=== PATIENT | female | born 1965 | race Caucasian/White ===

== ENCOUNTER 2017-03-27 15:03 | Outpatient (CLI) | payer MEDICAID | END 2017-03-27 15:04 | disposition critical access hospital (66) | LOC: EMS 15:03 | PROVIDERS: ATTEND Surgery | DX: R11.2 Nausea with vomiting, unspecified (principal); M54.5 Low back pain | CPT/HCPCS: A0425; A0427 ==

== ENCOUNTER 2017-03-27 15:36 | Emergency (ER) | payer MEDICAID ==
[2017-03-27] MEDS ORDERED: SODIUM CHLORIDE 0.9% 1,000 ML IV ONE (15:57)
[2017-03-27] MEDS ORDERED: ONDANSETRON 4 MG/2 ML VIAL IVP STA (15:57)
[2017-03-27] MEDS ORDERED: KETOROLAC 60 MG/2 ML VIAL IVP STA (15:57)
--- NOTE | 2017-03-27 16:00 | ED Physician Documentation ---
PD HPI ABD PAIN - Stated complaint Stated Complaint: N/V - Chief complaint Chief Complaint: Abd Pain - History obtained from History obtained from: Patient, EMS - History of Present Illness Timing - onset: Today Timing - duration: Hours Timing - details: Abrupt onset, Still present Quality: Sharp, Pain Location: RUQ Radiation: Right flank Improved by: Other (nothing) Worsened by: Other (nothing) Associated symptoms: Nausea, Vomiting, Dizzy Similar symptoms before: Has not had sx before Recently seen: Not recently seen - Additional information Additional information: 51-year-old female with a prior history of sciatica has sudden onset of severe right back pain radiating to her right flank. She does not have other modifying factors. She does have some nausea associated with this and has vomited. She states the pain is severe it was abrupt in onset and different from what she has had before with sciatica.She has had a flu shot recently. Review of Systems Constitutional: denies: Fever Eyes: denies: Decreased vision Ears: denies: Ear pain Nose: denies: Congestion Throat: denies: Sore throat Cardiac: denies: Chest pain / pressure, Palpitations Respiratory: denies: Dyspnea, Cough GI: reports: Abdominal Pain, Nausea, Vomiting. denies: Constipation, Diarrhea : denies: Dysuria, Frequency Skin: denies: Rash Musculoskeletal: reports: Back pain. denies: Neck pain, Extremity pain Neurologic: denies: Generalized weakness, Focal weakness, Numbness PD PAST MEDICAL HISTORY - Past Medical History Past Medical History: No - Past Surgical History Past Surgical History: No - Present Medications Home Medications: Ambulatory Orders Medication Instructions Recorded Confirmed HYDROcod/ACETAM 5/325 [[place] 5/325] 1 - 2 ea PO Q6H PRN #15 tablet 03/27/17 Tamsulosin [Flomax] 0.4 mg PO DAILY #7 capsule 03/27/17 - Allergies Allergies/Adverse Reactions: Allergies Allergy/AdvReac Type Severity Reaction Status Date / Time No Known Drug Allergies Allergy Verified 03/27/17 15:47 - Social History Does the pt smoke?: No Smoking Status: Never smoker Does the pt drink ETOH?: Yes Does the pt have substance abuse?: Yes Substance Use and Type: Marijuana - Immunizations Immunizations are current?: Yes - POLST Patient has POLST: No PD ED PE NORMAL - Vitals Vital signs reviewed: Yes (Hypertensive) - General General: Well developed/nourished, Other (The patient appears to be in pain and is grunting and moving about on the gurney.) - HEENT HEENT: Atraumatic, PERRL - Neck Neck: Supple, no meningeal sign - Cardiac Cardiac: RRR, No murmur - Respiratory Respiratory: No respiratory distress, Clear bilaterally - Abdomen Abdomen: Soft, Non tender - Back Back: No CVA TTP, No spinal TTP - Derm Derm: Normal color, Warm and dry, No rash - Extremities Extremities: No deformity, No edema - Neuro Neuro: No motor deficit, No sensory deficit - Psych Psych: Normal mood, Normal affect Results - Vitals Vitals: Vital Signs - 24 hr 03/27/17 15:44 Temperature 36.1 C L Heart Rate 98 Respiratory 18 Rate Blood Pressure 152/99 H O2 Saturation 98 Oxygen O2 Source Room air - Labs Labs: Laboratory Tests 03/27/17 03/27/17 03/27/17 16:30 16:39 16:39 WBC 10.1 RBC 4.64 Hgb 13.9 Hct 40.7 MCV 87.7 MCH 29.9 MCHC 34.1 RDW 14.2 Plt Count 282 MPV 6.6 L Neut # 8.3 H Lymph # 1.3 L [place] # 0.3 Eos # 0.0 Baso # 0.1 Absolute Nucleated RBC 0.00 Nucleated RBC % 0.0 Sodium 136 Potassium 4.0 Chloride 100 L Carbon Dioxide 25 Anion Gap 11.0 BUN 14 Creatinine 0.8 Estimated GFR (MDRD) 75 L Glucose 118 H Calcium 9.3 Total Bilirubin 0.4 AST 21 ALT 13 Alkaline Phosphatase 82 Total Protein 7.9 Albumin 4.1 Globulin 3.8 Albumin/Globulin Ratio 1.1 Lipase 19 L Urine Color BROWN Urine Clarity CLOUDY Urine pH 6.5 Ur Specific [place] 1.025 Urine Protein 30 H Urine Glucose (UA) NEGATIVE Urine Ketones 15 H Urine Occult Blood LARGE H Urine Nitrite NEGATIVE Urine Bilirubin NEGATIVE Urine Urobilinogen 0.2 (NORMAL) Ur Leukocyte Esterase NEGATIVE Ur Microscopic Review INDICATED Urine Culture Comments Not Reportable - Rads (name of study) CT abdomen pelvis without Radiology: Prelim report reviewed (Impression: 1. 5 mm proximal right ureter stone with moderate hydronephrosis. 2. Otherwise unremarkable.), EMP read indepedently, See rad report Procedures - Bedside sono Bedside sono by EMP: With use of bedside ultrasound the right kidney is imaged and shows marked hydronephrosis and it is sonographically nontender. PD MEDICAL DECISION MAKING - ED course Complexity details: reviewed results, re-evaluated patient, considered differential, d/w patient ED course: 51-year-old female with no real medical history has acute onset of right flank pain she has hydronephrosis on bedside exam with the ultrasound and pain consistent with a kidney stone. She is administered intravenous Toradol Zofran and saline and a CT of the abdomen and pelvis is ordered without contrast. The patient has a remarkable improvement in her pain with the Toradol and there is a large stone in the proximal ureter with complete obstruction.I discussed with the patient the natural course of kidney stone and the fact the stone is large we should contact the urologist to be seen urgently as manipulation of stone may be required. I have also prescribed tamsulosin. Departure - Departure Disposition: 01 Home, Self Care Clinical Impression: Ureterolithiasis Condition: Stable Instructions: ED Stone Renal W Colic Follow-Up: [facility] [Provider Group] [facility] [Provider Group] Prescriptions: HYDROcod/ACETAM 5/325 [[place] 5/325] 1 - 2 ea PO Q6H PRN #15 tablet PRN Reason: Pain Tamsulosin [Flomax] 0.4 mg PO DAILY #7 capsule Comments: Today in the Emergency Department your blood pressure was elevated. This can happen from the stress of the visit itself, from a current illness or circumstance or from uncontrolled hypertension. If you take blood pressure medications take your usual mediations, have your blood pressure re-checked in an appropriate setting and follow up any elevation with your primary care doctor.
[2017-03-27] MEDS ORDERED: ONDANSETRON 4 MG/2 ML VIAL ONE (16:04)
[2017-03-27] MEDS ORDERED: KETOROLAC 30 MG/ML VIAL ONE (16:05)
[2017-03-27 16:45] LABS: BASOPHILS # (AUTO) 0.1 10^3/uL (0.0-0.1); EOSINOPHILS % (AUTO) 0.2 %; HCT - HEMATOCRIT 40.7 % (37.0-47.0); HGB - HEMOGLOBIN 13.9 g/dL (12.0-16.0); LYMPHOCYTES # (AUTO) 1.3 10^3/uL (1.5-3.5); MEAN CORPUSCULAR HEMOGLOBIN 29.9 pg (27.0-31.0); MEAN CORPUSCULAR HGB CONC 34.1 g/dL (32.0-36.0); MEAN CORPUSCULAR VOLUME 87.7 fL (81.0-99.0); MEAN PLATELET VOLUME 6.6 fL (7.9-10.8); MONOCYTES # (AUTO) 0.3 10^3/uL (0.0-1.0); MONOCYTES % (AUTO) 3.1 %; NEUTROPHILS # (AUTO) 8.3 10^3/uL (1.5-6.6); NEUTROPHILS % (AUTO) 82.7 %; RED BLOOD COUNT 4.64 10^6/uL (4.20-5.40); RED CELL DISTRIBUTION WIDTH 14.2 % (12.0-15.0); UNCORRECTED WHITE BLOOD COUNT 10.1 x10^3/uL; WHITE BLOOD COUNT 10.1 x10^3/uL (4.8-10.8)
--- NOTE | 2017-03-27 16:50 | CT Preliminary Report ---
Exam: CT Abdomen/Pelvis W/O IMPRESSION: 1. 5 mm proximal right ureter stone with moderate hydronephrosis. 2. Otherwise unremarkable. [facility] SITE ID: [id number]
--- NOTE | 2017-03-27 16:52 | CT Report ---
EXAM: CT ABDOMEN AND PELVIS (CT KUB) EXAM DATE: 03/27/2017 04:32 PM. CLINICAL HISTORY: Right flank pain, hydro on bedside. COMPARISONS: None. TECHNIQUE: Routine axial helical CT imaging was performed through the abdomen and pelvis without IV c ontrast. Reconstructions: Coronal and sagittal. In accordance with CT protocol optimization, one or more of the following dose reduction techniques w ere utilized for this exam: automated exposure control, adjustment of mA and/or KV based on patient s ize, or use of iterative reconstructive technique. FINDINGS: Lung Bases: Unremarkable. Right Kidney/Ureter: There is a proximal right ureter stone measuring 5 mm in diameter. There is mode rate pelvic caliectasis of the right kidney. There is mild right perinephric edema. Left Kidney/Ureter: No urolithiasis or hydronephrosis. Other Solid Organs: Noncontrast images of the solid organs are grossly unremarkable. Gallbladder/Bile Ducts: Unremarkable. Peritoneal Cavity: There are scattered colonic diverticula. No dilated bowel loops. No abnormal fluid or gas collection. Pelvic Organs: Urinary bladder appears unremarkable. Uterus is anteverted. Vasculature: Unremarkable. Other: No destructive bony abnormality. IMPRESSION: 1. 5 mm proximal right ureter stone with moderate hydronephrosis. 2. Otherwise unremarkable. [facility] Referring Provider Line: [phone] SITE ID: [id number]
[2017-03-27 16:59] LABS: ALBUMIN/GLOBULIN RATIO 1.1 (1.0-2.2); BILIRUBIN,TOTAL 0.4 mg/dL (0.2-1.0); CALCIUM 9.3 mg/dL (8.5-10.3); CREATININE 0.8 mg/dL (0.4-1.0); TOTAL PROTEIN 7.9 g/dL (6.7-8.2)
[2017-03-27 17:16] LABS: BILIRUBIN,URINE NEGATIVE (NEGATIVE); PH,URINE 6.5 PH (5.0-7.5)
[2017-03-27 17:18] LABS: UA w/ MICROSCOPIC CHARGE YES
[2017-03-27 17:22] LABS: UR CULTURE IF IND NOT INDICATED; WBC,URINE 0-3 /HPF (0-5)
[2017-03-27 17:35] VITALS: BP 108/62
== END 2017-03-27 17:38 | disposition home or self-care (01) ==
LOC: EDUNIT# → ED 15:36
DX: N13.2 Hydronephrosis with renal and ureteral calculous obstruction (principal); R03.0 Elevated blood-pressure reading, without diagnosis of hypertension
CPT/HCPCS: 36415; 74176; 80053; 81001; 81003; 83690; 85025; 87086; 96361; 96374; 96375; 99284

== ENCOUNTER 2018-03-01 10:19 | Outpatient (CLI) | payer OTHER | END 2018-03-01 10:20 | disposition short-term general hospital (02) | LOC: EMS 10:19 | PROVIDERS: ATTEND Surgery | DX: M54.5 Low back pain (principal) | CPT/HCPCS: A0425; A0427 ==

== ENCOUNTER 2018-04-17 18:12 | Outpatient (CLI) | payer OTHER | END 2018-04-17 18:13 | disposition critical access hospital (66) | LOC: EMS 18:12 | PROVIDERS: ATTEND Surgery | DX: R41.82 Altered mental status, unspecified (principal); R09.89 Other specified symptoms and signs involving the circulatory and respiratory systems | CPT/HCPCS: A0425; A0427 ==

== ENCOUNTER 2018-04-17 18:40 | Observation (INO) | payer OTHER ==
[2018-04-17] MEDS ORDERED: SODIUM CHLORIDE 0.9% 1,000 ML IV ONE (18:49)
--- NOTE | 2018-04-17 18:52 | ED Physician Documentation ---
History of Present Illness - Stated complaint Stated Complaint: LETHARGIC, END STAGE CA - History obtained from History obtained from: EMS - History of Present Illness Timing: Today (Brought in by ambulance from home. My understanding from the paramedics is that she has some sort of widely metastatic cancer and is not on hospice and she is more lethargic than normal today and was hypoxic on scene at 70%. The paramedics tell me that the family "wants everything done", but they are not here on arrival. The patient is unable to provide any history due to altered mental status.) Review of Systems Unable to obtain: AMS PD PAST MEDICAL HISTORY - Past Surgical History Past Surgical History: No - Present Medications Home Medications: Ambulatory Orders Medication Instructions Recorded Confirmed RX: HYDROcod/ACETAM 5/325 [[place] 1 - 2 ea PO Q6H PRN #15 tablet 03/27/17 5/325] RX: Tamsulosin [Flomax] 0.4 mg PO DAILY #7 capsule 03/27/17 - Allergies Allergies/Adverse Reactions: Allergies Allergy/AdvReac Type Severity Reaction Status Date / Time No Known Drug Allergies Allergy Verified 03/27/17 15:47 - Social History Does the pt smoke?: No Smoking Status: Never smoker Does the pt drink ETOH?: Yes Does the pt have substance abuse?: Yes - Immunizations Immunizations are current?: Yes - POLST Patient has POLST: No PD ED PE NORMAL - Vitals Vital signs reviewed: Yes - General General: Other (This is a very thin cachectic woman who is in some respiratory distress, she has her eyes closed and will answer to her name but provides no other verbal history) - HEENT HEENT: Other (Dry mucous membranes, slightly dilated pupils) - Neck Neck: Supple, no meningeal sign, No bony TTP - Cardiac Cardiac: RRR, No murmur - Respiratory Respiratory: Other (Neck with diminished breath sounds on the right) - Abdomen Abdomen: Other (Very tender diffusely) - Back Back: No CVA TTP, No spinal TTP - Derm Derm: Normal color, Warm and dry - Extremities Extremities: No edema, No calf tenderness / cord - Neuro Eye Opening: To Voice Motor: Localizes to Pain Verbal: Inappropriate GCS Score: 11 Results - Vitals Vitals: Vital Signs - 24 hr 04/17/18 04/17/18 18:52 19:30 Temperature 36.3 C L Heart Rate 104 H 113 H Respiratory 36 H Rate Blood Pressure 122/72 108/73 O2 Saturation 95 98 Oxygen O2 Source Non-rebreather mask - Labs Labs: Laboratory Tests 04/17/18 04/17/18 04/17/18 19:10 19:10 19:10 WBC 12.8 H RBC 2.64 L Hgb 7.0 L* Hct 23.3 L MCV 88.4 MCH 26.5 L MCHC 30.0 L RDW 31.4 H Plt Count 77 L MPV 8.1 Neut # (Auto) 11.7 H Lymph # (Auto) 0.2 L [place] # (Auto) 0.7 Eos # (Auto) 0.0 Baso # (Auto) 0.1 Absolute Nucleated RBC 0.11 Nucleated RBC % 0.8 Manual Slide Review Indicated WBC Morphology NORMAL APPEARANCE Platelet Estimate DECREASED (<130,000) Platelet Morphology NORMAL APPEARANCE RBC Morph Micro Appear 2+ POLYCHROMASIA PT 22.5 H INR 2.0 H VBG pH VBG pCO2 VBG pO2 VBG HCO3 VBG Total CO2 VBG O2 Saturation VBG Base Excess Sodium 139 Potassium 3.6 Chloride 98 L Carbon Dioxide 30 Anion Gap 11.0 BUN 15 Creatinine 0.5 Estimated GFR (MDRD) 129 Glucose 128 H Lactic Acid Calcium 7.7 L Total Bilirubin 1.0 AST 16 ALT 14 Alkaline Phosphatase 135 H Total Creatine Kinase 30 CK-MB (CK-2) Troponin I Total Protein 5.6 L Albumin 1.4 L Globulin 4.2 Albumin/Globulin Ratio 0.3 L Lipase 43 Ethyl Alcohol < 5.0 04/17/18 04/17/18 04/17/18 19:10 19:10 19:10 WBC RBC Hgb Hct MCV MCH MCHC RDW Plt Count MPV Neut # (Auto) Lymph # (Auto) [place] # (Auto) Eos # (Auto) Baso # (Auto) Absolute Nucleated RBC Nucleated RBC % Manual Slide Review WBC Morphology Platelet Estimate Platelet Morphology RBC Morph Micro Appear PT INR VBG pH 7.492 H VBG pCO2 40.5 L VBG pO2 160.9 H VBG HCO3 30.3 H VBG Total CO2 31.6 H VBG O2 Saturation 99.7 H VBG Base Excess 6.4 H Sodium Potassium Chloride Carbon Dioxide Anion Gap BUN Creatinine Estimated GFR (MDRD) Glucose Lactic Acid 1.1 Calcium Total Bilirubin AST ALT Alkaline Phosphatase Total Creatine Kinase CK-MB (CK-2) 2.4 Troponin I 0.05 Total Protein Albumin Globulin Albumin/Globulin Ratio Lipase Ethyl Alcohol PD MEDICAL DECISION MAKING - ED course ED course: The family did arise and the conversation changed a lot. They had actually been planning on enrolling her in hospice and do not want any aggressive measures. They request admission to the hospital for comfort care. They are unable to manage her at home. At that point all imaging studies were canceled. - Consults Consults: Discussed case with (Dr Coto), Request [facility] consultant admit patient Departure - Departure Disposition: ED Place in Observation Clinical Impression: End of life care, Metastatic cancer Condition: Serious Discharge Date/Time: 04/17/18 20:50
[2018-04-17 19:26] LABS: BASOPHILS # (AUTO) 0.1 10^3/uL (0.0-0.1); BASOPHILS % (AUTO) 0.9 %; EOSINOPHILS % (AUTO) 0.1 %; LYMPHOCYTES # (AUTO) 0.2 10^3/uL (1.5-3.5); LYMPHOCYTES % (AUTO) 1.8 %; MEAN CORPUSCULAR HEMOGLOBIN 26.5 pg (27.0-31.0); MEAN CORPUSCULAR VOLUME 88.4 fL (81.0-99.0); MEAN PLATELET VOLUME 8.1 fL (7.9-10.8); MONOCYTES # (AUTO) 0.7 10^3/uL (0.0-1.0); MONOCYTES % (AUTO) 5.5 %; NEUTROPHILS # (AUTO) 11.7 10^3/uL (1.5-6.6); NEUTROPHILS % (AUTO) 91.7 %; PLT - PLATELET COUNT 77 10^3/uL (130-450); RED BLOOD COUNT 2.64 10^6/uL (4.20-5.40); RED CELL DISTRIBUTION WIDTH 31.4 % (12.0-15.0); WHITE BLOOD COUNT 12.8 x10^3/uL (4.8-10.8)
[2018-04-17 19:27] LABS: PT - PROTHROMBIN TIME 22.5 secs (9.9-12.6)
[2018-04-17 19:36] LABS: ALBUMIN 1.4 g/dL (3.2-5.5); ALBUMIN/GLOBULIN RATIO 0.3 (1.0-2.2); ALKALINE PHOSPHATASE 135 IU/L (42-121); ALT ALANINE AMINOTRANSFERASE 14 IU/L (10-60); AST ASPARTATE AMINOTRANSFERASE 16 IU/L (10-42); BUN - BLOOD UREA NITROGEN 15 mg/dL (6-20); CALCIUM 7.7 mg/dL (8.5-10.3); CARBON DIOXIDE - CO2 30 mmol/L (21-32); CHLORIDE 98 mmol/L (101-111); CK- CREATINE KINASE 30 IU/L (22-269); CREATININE 0.5 mg/dL (0.4-1.0); GFR - MDRD 129 (>89); GLUCOSE 128 mg/dL (70-100); LIPASE 43 U/L (22-51); SODIUM 139 mmol/L (135-145); TOTAL PROTEIN 5.6 g/dL (6.7-8.2)
[2018-04-17] MEDS ORDERED: ONDANSETRON 4 MG/2 ML VIAL IVP PRN (19:39)
[2018-04-17] MEDS ORDERED: ATROPINE 1% OPHTH DROPS 2 ML SL PRN (19:39)
[2018-04-17] MEDS ORDERED: CARBOXYMETHYLCELLULOSE OPHTH DROPS EACHEYE PRN (19:39)
[2018-04-17 19:40] LABS: TROPONIN I 0.05 ng/mL (<0.49)
[2018-04-17 19:42] LABS: CREATINE KINASE MB 2.4 ng/mL (0.6-6.3); VBG PCO2 40.5 mmHg (41-51); VBG PH 7.492 (7.31-7.41); VBG PO2 160.9 mmHg (25-47); VBG TOTAL CO2 31.6 mmol/L (24-29)
[2018-04-17 19:43] LABS: VBG BASE EXCESS 6.4 mmol/L (-2 - +2)
[2018-04-17 19:44] LABS: PLATELET ESTIMATE, MANUAL DECREASED (<130,000) (NORMAL); PLATELET MORPHOLOGY NORMAL APPEARANCE (NORMAL)
--- NOTE | 2018-04-17 19:51 | HISTORY & PHYSICAL EXAMINATION ---
Chief Complaint - Chief Complaint Chief Complaint: Altered mental status History of Present Illness - Admitted From Admitted From:: Emergency Department - History Obtained From Records Reviewed: Yes History obtained from: Patient Exam Limitations: Patient slow to respond secondary to decreased level of consciousness - History of Present Illness HPI Comment/Other: Patient is a 52-year-old female with a very unfortunate past medical history significant for metastatic cancer of unknown primary diagnosed in January 2018 with metastasis to her spine and brain status post 10 rounds of radiation to her spine and 15 rounds of radiation to her brain who presented to the emergency department with a decreased level of consciousness. According to the patient she has had a severe decline over the last 2 months and specifically over the last few weeks. She states that she was first diagnosed with metastatic cancer when she presented with a lump in her side and underwent MRI and CT scans which showed that she had metastatic cancer in her spine and her brain. She states that she underwent radiation therapy to her brain and her spine starting in February in [place]. The patient states that since finishing her radiation therapy she has had a continued decline in over the last several weeks has been primarily bedbound. She states that she lives by herself and a friend does help out with providing her food but otherwise she has a little support or assistance. She does have 2 children one daughter who lives in [place], [place] and one son who lives in [place]. She states that she has had a very poor appetite and been eating very little. She states that she has pain on and off in her spine. She states that she has become so weak that she can barely sit up in her bed. She has been interested in hospice but has yet to enroll. At this point she states that she just wants to be comfortable. The patient was brought into the emergency department because of decreased level of consciousness today as she was very minimally responsive at home. The patient does state that she is having a hard time catching her breath but denies any chest pain. She denies any fevers or chills. She does state that she feels very cold. She denies any abdominal pain, nausea, vomiting, or diarrhea. She denies any urinary urgency, frequency or dysuria. She denies any neck stiffness or focal neurologic deficits. Patient denies any headache, blurred vision, runny nose, sore throat, nasal congestion, difficulty swallowing, orthopnea, PND, increased lower extremity swelling, constipation, joint swelling, joint pain, muscle aches, skin rash, night sweats, polyuria, polydipsia. On presentation to the emergency department the patient was afebrile, tachycardic with heart rate of 113, blood pressure was soft at 108/73 and patient was very tachypneic initially saturating at 78% on room air and placed on a nonrebreather. The patient initially underwent lab work which showed a mild leukocytosis of 12.8, anemia with a hemoglobin of 7.0, platelet count of 77, elevated INR of 2.0 and mildly elevated alk phos of 135. The patient otherwise had no electrolyte abnormalities. On arrival to the emergency department the patient was very minimally responsive and unable to give history. Eventually the patient's family arrived in the emergency department and they told the emergency room physician that the patient does not want anything invasive and therefore imaging studies were canceled by the emergency room daryn lee. The family stated that the patient just wants to be kept comfortable and would want to be set up for hospice at home. After speaking to the patient once she arrived in the hospital the patient was more awake and she did agree to be comfort care but was interested in getting IV fluids and a blood transfusion to help with hydration and strength. Patient was placed in observation for com fort measures and supportive care. History - Past Medical History MRSA Hx?: No Other Past Medical History: Metastatic cancer with metastasis to the Spine and brain - Family & Social History Family History: Mother: Alive and Well, Father: Cancer (Esophageal cancer) Living arrangement: At home Living Situation: Alone Social History Notes: The patient is originally from [place] and moved to [facility] 19 years ago. She currently lives in [place] alone. She has 1 son and 1 daughter. The patient's son lives in [place] and daughter lives in [facility]. The patient is . 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 She states that she is a former smoker and smoked more than a pack a day but shila t 10 years ago. She denies any alcohol or drug use. She states that she is been bedbound for the last 2-3 weeks with a friend that is been helping her get food. Prior to that the patient states that she was ambulating until recently was working. - POLST Patient has POLST: Yes POLST Status: DNR Meds/Allgy - Home Medications Home Medications: Ambulatory Orders Medication Instructions Recorded Confirmed HYDROcod/ACETAM 5/325 [Independence 5/325] 1 - 2 ea PO Q6H PRN #15 tablet 03/27/17 Tamsulosin [Flomax] 0.4 mg PO DAILY #7 capsule 03/27/17 - Allergies Allergies/Adverse Reactions: Allergies Allergy/AdvReac Type Severity Reaction Status Date / Time No Known Drug Allergies Allergy Verified 03/27/17 15:47 Review of Systems - Other Findings Other Findings: A comprehensive review of systems was performed the pertinent positives and ne gatives are stated above in the HPI and the remainder of the review of systems is negative. Prior Level of Functionality: Patient has been bedbound for the last 2-3 months due to failure to thrive from her metastatic cancer. She has very limited support at home and would like hospice care. Exam - Vital Signs Reviewed Vital Signs: Yes Vital Signs: Vital Signs x48h Temp Pulse Resp BP Pulse Ox 04/17/18 18:52 36.3 C L 104 H 36 H 122/72 95 - Physical Exam General Appearance: positive: Moderate distress (Patient is very tachypneic), Lethargic, Other (Patient is cachectic, with significant hair loss, pale and appears very dehydrated and ill.) Eyes Bilateral: positive: PERRL, EOMI, No lid inflammation, No scleral icterus, Other (Patient has conjunctival pallor.) ENT: positive: ENT inspection nml, Pharynx nml, Dry mucous membranes. negative: Purulent nasal drainage, Pharyngeal erythema, Oral lesions Neck: positive: Nml inspection, Thyroid nml, No JVD, Trachea midline. negative: Thyromegaly, Lymphadenopathy (R), Lymphadenopathy (L), Stiff neck, Carotid bruit, Tracheal deviation Respiratory: positive: Chest non-tender, No respiratory distress, Rhonchi (Bilateral bases) Cardiovascular: positive: No murmur, No gallop Peripheral Pulses: positive: 2+ Abdomen: positive: No organomegaly, Nml bowel sounds, No distention, Tenderness (Soft, diffusely tender no rebound or guarding). negative: Guarding, Rebound, Hepatomegaly Back: positive: Nml inspection. negative: CVA tenderness (R), CVA tenderness (L) Skin: positive: No rash, Warm, Dry, Pallor, Decubitus (Stage IV gluteal ulcer appears chronic) Extremities: positive: Non-tender, Full ROM, Nml appearance, No pedal edema Neurologic/Psychiatric: positive: Oriented x3, CN's nml (2-12), Motor nml, Sensation nml, Mood/affect nml, Other (Patient is lethargic) Conclusion/Plan - Problem List (1) Acute respiratory failure with hypoxia Conclusion/Plan: Patient presented with decreased level of consciousness and was found to be hypoxic down to 78% on room air. The patient was also tachypneic and had a mild leukocytosis on presentation. The patient was however afebrile. Patient had a borderline blood pressure and was tachycardic on presentation. Patient's family made it clear that the patient did not want any invasive treatment and would like to be comfortable. Therefore no chest x-ray or other imaging was performed. Patient likely has a pneumonia which is causing her hypoxic respiratory failure. Plan: Comfort care measures with oxygen for comfort No chest x-ray or antibiotic treatment at this time IV fluids given patient's severe dehydration (2) Failure to thrive Conclusion/Plan: Patient appears to be having failure to thrive over the last 2 weeks to 1 month. This is likely secondary to her metastatic cancer which appears to be rapidly progressing and is causing the patient pain, distress and poor appetite with muscle wasting and severe dehydration. Plan: IV fluids for severe dehydration Transfused 2 units of packed RBCs with hemoglobin of 7.0 as this is likely contributing to her overall weakness Comfort measures with p.o. morphine and Ativan for relief of pain and agitation Palliative care consult Social work consult for hospice Qualifiers: Failure to thrive age range: in adult Qualified Code(s): R62.7 - Adult failure to thrive (3) Anemia Conclusion/Plan: Patient has severe anemia with a hemoglobin of 7.0. She appears very pale on examination and is tachypneic, hypoxic and very short of breath. The patient is also severely dehydrated and has borderline hypotension. Likely the patient's symptoms are at least in part due to her severe anemia. The cause of the patient's anemia is likely her cancer with metastasis to her bones likely causing bone marrow failure. Plan: Patient will be given transfusion with 2 units of packed RBCs for comfort Give IV fluids Comfort care Qualifiers: Anemia type: bone marrow failure Bone marrow failure anemia type: other bone marrow failure Qualified Code(s): D61.89 - Other specified aplastic anemias and other bone marrow failure syndromes (4) Metastatic cancer Conclusion/Plan: The patient has metastatic cancer with metastasis to her spine and her brain. She is status post radiation therapy to both her spine and her brain. Over the last 3 weeks to a month patient has had severe decline in her health. She has lost significant weight, has had very poor oral intake and has become bedbound and developed a stage IV decubitus ulcer on her gluteal region. The patient also presents with hypoxic respiratory failure and severe anemia with a hemoglobin of 7.0. The patient also appears to be very dehydrated on presentation. The patient wants to be made comfortable and not want any aggressive care at this time. Plan: Comfort care with focus on pain and agitation control Patient will be given 2 units of packed RBCs and IV fluid to help with her ongoing dehydration and symptoms of shortness of breath and weakness. Consult palliative care and hospice. (5) Decubitus ulcer of buttock, stage 4 Conclusion/Plan: Patient has a decubitus ulcer on her left gluteal region. The patient has been alone at home and bedbound for last 3-4 weeks and has severe weight loss is now cachectic with a BMI of 13.9 and likely very poor nutrition. This ulcer appears to have developed at home prior to this hospitalization. Plan: Wound consult Palliative care consult Social work consult for Qualifiers: Laterality: left Qualified Code(s): L89.324 - Pressure ulcer of left buttock, stage 4 (6) Severe protein-calorie malnutrition Conclusion/Plan: Patient has severe protein calorie malnutrition secondary to ongoing cancer with poor appetite and failure to thrive. At this point patient will be made c omfort care measures only. We will offer her food for comfort. It does not look as though patient has long to live and patient would not want any tube feedings and does not want any excessive measures at this point. (7) Thrombocytopenia Conclusion/Plan: The patient has thrombocytopenia on presentation with a platelet count of 77. The patient's platelet count was normal 1 year ago when it was last checked. Patient likely has bone marrow failure secondary to her metastatic cancer with metastasis to the bone. The patient is not actively bleeding and platelet count is acceptable therefore she does not need any platelet transfusion. Plan: Comfort care Consult palliative care Hospice - Lab Results Lab results reviewed: Yes Fish Bones: 04/17/18 19:10 04/17/18 19:10 Other Lab Results: Laboratory Results WBC 12.8 x10^3/uL (4.8-10.8) H 04/17/18 19:10 RBC 2.64 10^6/uL (4.20-5.40) L 04/17/18 19:10 Hgb 7.0 g/dL (12.0-16.0) L* 04/17/18 19:10 Hct 23.3 % (37.0-47.0) L 04/17/18 19:10 MCV 88.4 fL (81.0-99.0) 04/17/18 19:10 MCH 26.5 pg (27.0-31.0) L 04/17/18 19:10 MCHC 30.0 g/dL (32.0-36.0) L 04/17/18 19:10 RDW 31.4 % (12.0-15.0) H 04/17/18 19:10 Plt Count 77 10^3/uL (130-450) L 04/17/18 19:10 MPV 8.1 fL (7.9-10.8) 04/17/18 19:10 Neut # (Auto) 11.7 10^3/uL (1.5-6.6) H 04/17/18 19:10 Lymph # (Auto) 0.2 10^3/uL (1.5-3.5) L 04/17/18 19:10 Starr # (Auto) 0.7 10^3/uL (0.0-1.0) 04/17/18 19:10 Eos # (Auto) 0.0 10^3/uL (0.0-0.7) 04/17/18 19:10 Baso # (Auto) 0.1 10^3/uL (0.0-0.1) 04/17/18 19:10 Absolute Nucleated RBC 0.11 x10^3/uL 04/17/18 19:10 Nucleated RBC % 0.8 /100WBC 04/17/18 19:10 Manual Slide Review Indicated 04/17/18 19:10 WBC Morphology NORMAL APPEARANCE (NORMAL) 04/17/18 19:10 Platelet Estimate DECREASED (<130,000) (NORMAL) 04/17/18 19:10 Platelet Morphology NORMAL APPEARANCE (NORMAL) 04/17/18 19:10 RBC Morph Micro Appear 4+ ANISOCYTOSIS (NORMAL) 2+ HYPOCHROMASIA (NORMAL) 2+ POLYCHROMASIA (NORMAL) 04/17/18 19:10 RBC Morph Micro Appear 4+ ANISOCYTOSIS (NORMAL) 2+ HYPOCHROMASIA (NORMAL) 2+ POLYCHROMASIA (NORMAL) 04/17/18 19:10 RBC Morph Micro Appear 4+ ANISOCYTOSIS (NORMAL) 2+ HYPOCHROMASIA (NORMAL) 2+ POLYCHROMASIA (NORMAL) 04/17/18 19:10 PT 22.5 secs (9.9-12.6) H 04/17/18 19:10 INR 2.0 (0.8-1.2) H 04/17/18 19:10 VBG pH 7.492 (7.31-7.41) H 04/17/18 19:10 VBG pCO2 40.5 mmHg (41-51) L 04/17/18 19:10 VBG pO2 160.9 mmHg (25-47) H 04/17/18 19:10 VBG HCO3 30.3 mmol/L (23-28) H 04/17/18 19:10 VBG Total CO2 31.6 mmol/L (24-29) H 04/17/18 19:10 VBG O2 Saturation 99.7 % (60-80) H 04/17/18 19:10 VBG Base Excess 6.4 mmol/L (-2 - +2) H 04/17/18 19:10 Sodium 139 mmol/L (135-145) 04/17/18 19:10 Potassium 3.6 mmol/L (3.5-5.0) 04/17/18 19:10 Chloride 98 mmol/L (101-111) L 04/17/18 19:10 Carbon Dioxide 30 mmol/L (21-32) 04/17/18 19:10 Anion Gap 11.0 (6-13) 04/17/18 19:10 BUN 15 mg/dL (6-20) 04/17/18 19:10 Creatinine 0.5 mg/dL (0.4-1.0) 04/17/18 19:10 Estimated GFR (MDRD) 129 (>89) 04/17/18 19:10 Glucose 128 mg/dL (70-100) H 04/17/18 19:10 Lactic Acid 1.1 mmol/L (0.5-2.2) 04/17/18 19:10 Calcium 7.7 mg/dL (8.5-10.3) L 04/17/18 19:10 Total Bilirubin 1.0 mg/dL (0.2-1.0) 04/17/18 19:10 AST 16 IU/L (10-42) 04/17/18 19:10 ALT 14 IU/L (10-60) 04/17/18 19:10 Alkaline Phosphatase 135 IU/L (42-121) H 04/17/18 19:10 Total Creatine Kinase 30 IU/L (22-269) 04/17/18 19:10 CK-MB (CK-2) 2.4 ng/mL (0.6-6.3) 04/17/18 19:10 Troponin I 0.05 ng/mL (<0.49) 04/17/18 19:10 Total Protein 5.6 g/dL (6.7-8.2) L 04/17/18 19:10 Albumin 1.4 g/dL (3.2-5.5) L 04/17/18 19:10 Globulin 4.2 g/dL (2.1-4.2) 04/17/18 19:10 Albumin/Globulin Ratio 0.3 (1.0-2.2) L 04/17/18 19:10 Lipase 43 U/L (22-51) 04/17/18 19:10 Ethyl Alcohol < 5.0 mg/dL 04/17/18 19:10 Blood Type O NEGATIVE 04/17/18 22:10 Blood Type Recheck O NEGATIVE 04/17/18 19:10 Antibody Screen NEGATIVE 04/17/18 22:10 Crossmatch IS Only See Detail 04/17/18 22:10 Core Measures - Anticipated LOS I expect patient to be DC'd or transferred within 96 hours.: Yes - DVT/VTE - Prophylaxis VTE/DVT Device ordered at admit?: No Not Ordered - Medical Reason: Not indicated VTE/DVT Prophylaxis med ordered at admit?: No Not Ordered - Medical Reason: Not indicated
[2018-04-17] MEDS ORDERED: SODIUM CHLORIDE 0.9% 500 ML IV ONE (21:59)
[2018-04-17] MEDS ORDERED: SODIUM CHLORIDE FLUSH 0.9% 10 ML SYRINGE ONE (22:00)
[2018-04-17] MEDS: DEXTROSE 5%-0.9% NACL 1,000 ML IV SCH (22:04)
[2018-04-17] MEDS: MORPHINE SOL 10 MG/0.5 ML SYRINGE SL PRN (23:00)
[2018-04-18] MEDS: MORPHINE SOL 10 MG/0.5 ML SYRINGE SL PRN ×6 (07:58→22:58)
[2018-04-18] MEDS: LORazepam 0.5 MG TABLET PO PRN ×4 (10:30→14:05)
[2018-04-18] MEDS ORDERED: SODIUM CHLORIDE FLUSH 0.9% 10 ML SYRINGE ONE ×2 (13:16→15:55)
[2018-04-18] MEDS ORDERED: DEXTROSE 5%-0.9% NACL 1,000 ML IV SCH (14:05)
--- NOTE | 2018-04-18 15:34 | PROVIDER PROGRESS NOTE ---
Subjective - Prog Note Date Prog Note Date: 04/19/18 - Subjective Pt reports feeling: No change Subjective: pt report SOB without fever and chill. pt wants her family together to transfer to hospice. she says her son and daughter in law will come to the hospital today. pt wants to be comfortable care only in the hospital. Current Medications - Current Medications Current Medications: Active Medications Atropine Sulfate (Isopto Atropine 1% Ophth Drops) 1 - 4 drops SL Q2H PRN PRN Reason: Excessive secretions Carboxymethylcellulose (Refresh 1% Ophth Drops) 1 drops EACHEYE QID PRN PRN Reason: Dry Eye Lorazepam (Ativan) 1 mg PO Q1H PRN PRN Reason: Anxiety/Agitation Last Admin: 04/19/18 03:09 Dose: 1 mg Morphine Sulfate (Roxanol) 10 mg SL Q1HR PRN PRN Reason: PAIN Last Admin: 04/19/18 07:51 Dose: 10 mg Ondansetron HCl (Zofran Inj) 4 mg IVP Q8H PRN PRN Reason: Nausea / Vomiting Objective - Vital Signs/Intake & Output Reviewed Vital Signs: Yes Vital Signs: Vital Signs x48h Temp Pulse Pulse Resp BP BP Pulse Ox 04/18/18 08:33 36.9 C 107 H 26 H 105/67 04/18/18 08:11 36.9 C 98 26 H 105/67 96 Intake & Output: Intake & Output 04/15/18 04/16/18 04/17/18 04/18/18 23:59 23:59 23:59 23:59 Intake Total 1000 2824.500 Output Total 351 Balance 1000 2473.500 - Objective General Appearance: positive: No acute distress, Alert, Lethargic Eyes Bilateral: positive: Normal inspection, PERRL, No lid inflammation, Conju nctivae nml ENT: positive: ENT inspection nml, Pharynx nml, No signs of dehydration. negative: Purulent nasal drainage, Pharyngeal erythema, Oral lesions Neck: positive: Nml inspection, Thyroid nml, No JVD. negative: Lymphadenopathy (R), Lymphadenopathy (L) Respiratory: positive: Chest non-tender, Rales Cardiovascular: positive: No murmur, Tachycardia. negative: Irregularly irregular, Bradycardia, Systolic murmur, Diastolic murmur Peripheral Pulses: 2+ Radial (R), 2+ Radial (L), 2+ Dorsalis pedis (R), 2+ Dorsalis pedis (L) Abdomen: positive: Non-tender, No organomegaly, Nml bowel sounds. negative: Tenderness, Guarding, Rebound Back: negative: CVA tenderness (R), CVA tenderness (L) Skin: positive: Warm, Dry, Cyanosis, Decubitus. negative: Diaphoresis, Pallor Extremities: positive: Non-tender. negative: Calf tenderness, Jude's sign/cords Neurologic/Psychiatric: positive: Oriented x3, Sensation nml, Mood/affect nml. negative: Sensory loss, Facial droop, Slurred/abnml speech, Depressed mood/affect - Lab Results Fish Bones: 04/17/18 19:10 04/17/18 19:10 Other Labs: Lab Results x24hrs 04/17/18 04/17/18 04/17/18 Range/Units 22:10 19:10 19:10 WBC (4.8-10.8) x10^3/uL RBC (4.20-5.40) 10^6/uL Hgb (12.0-16.0) g/dL Hct (37.0-47.0) % MCV (81.0-99.0) fL MCH (27.0-31.0) pg MCHC (32.0-36.0) g/dL RDW (12.0-15.0) % Plt Count (130-450) 10^3/uL MPV (7.9-10.8) fL Neut # (Auto) (1.5-6.6) 10^3/uL Lymph # (Auto) (1.5-3.5) 10^3/uL Larimer # (Auto) (0.0-1.0) 10^3/uL Eos # (Auto) (0.0-0.7) 10^3/uL Baso # (Auto) (0.0-0.1) 10^3/uL Absolute Nucleated RBC x10^3/uL Nucleated RBC % /100WBC Manual Slide Review WBC Morphology (NORMAL) Platelet Estimate (NORMAL) Platelet Morphology (NORMAL) RBC Morph Micro Appear (NORMAL) PT (9.9-12.6) secs INR (0.8-1.2) VBG pH 7.492 H (7.31-7.41) VBG pCO2 40.5 L (41-51) mmHg VBG pO2 160.9 H (25-47) mmHg VBG HCO3 30.3 H (23-28) mmol/L VBG Total CO2 31.6 H (24-29) mmol/L VBG O2 Saturation 99.7 H (60-80) % VBG Base Excess 6.4 H (-2 - +2) mmol/L Sodium (135-145) mmol/L Potassium (3.5-5.0) mmol/L Chloride (101-111) mmol/L Carbon Dioxide (21-32) mmol/L Anion Gap (6-13) BUN (6-20) mg/dL Creatinine (0.4-1.0) mg/dL Estimated GFR (MDRD) (>89) Glucose (70-100) mg/dL Lactic Acid (0.5-2.2) mmol/L Calcium (8.5-10.3) mg/dL Total Bilirubin (0.2-1.0) mg/dL AST (10-42) IU/L ALT (10-60) IU/L Alkaline Phosphatase (42-121) IU/L Total Creatine Kinase (22-269) IU/L CK-MB (CK-2) (0.6-6.3) ng/mL Troponin I (<0.49) ng/mL Total Protein (6.7-8.2) g/dL Albumin (3.2-5.5) g/dL Globulin (2.1-4.2) g/dL Albumin/Globulin Ratio (1.0-2.2) Lipase (22-51) U/L Ethyl Alcohol mg/dL Blood Type O NEGATIVE Blood Type Recheck O NEGATIVE Antibody Screen NEGATIVE Crossmatch IS Only See Detail 04/17/18 04/17/18 04/17/18 Range/Units 19:10 19:10 19:10 WBC (4.8-10.8) x10^3/uL RBC (4.20-5.40) 10^6/uL Hgb (12.0-16.0) g/dL Hct (37.0-47.0) % MCV (81.0-99.0) fL MCH (27.0-31.0) pg MCHC (32.0-36.0) g/dL RDW (12.0-15.0) % Plt Count (130-450) 10^3/uL MPV (7.9-10.8) fL Neut # (Auto) (1.5-6.6) 10^3/uL Lymph # (Auto) (1.5-3.5) 10^3/uL Larimer # (Auto) (0.0-1.0) 10^3/uL Eos # (Auto) (0.0-0.7) 10^3/uL Baso # (Auto) (0.0-0.1) 10^3/uL Absolute Nucleated RBC x10^3/uL Nucleated RBC % /100WBC Manual Slide Review WBC Morphology (NORMAL) Platelet Estimate (NORMAL) Platelet Morphology (NORMAL) RBC Morph Micro Appear (NORMAL) PT (9.9-12.6) secs INR (0.8-1.2) VBG pH (7.31-7.41) VBG pCO2 (41-51) mmHg VBG pO2 (25-47) mmHg VBG HCO3 (23-28) mmol/L VBG Total CO2 (24-29) mmol/L VBG O2 Saturation (60-80) % VBG Base Excess (-2 - +2) mmol/L Sodium 139 (135-145) mmol/L Potassium 3.6 (3.5-5.0) mmol/L Chloride 98 L (101-111) mmol/L Carbon Dioxide 30 (21-32) mmol/L Anion Gap 11.0 (6-13) BUN 15 (6-20) mg/dL Creatinine 0.5 (0.4-1.0) mg/dL Estimated GFR (MDRD) 129 (>89) Glucose 128 H (70-100) mg/dL Lactic Acid 1.1 (0.5-2.2) mmol/L Calcium 7.7 L (8.5-10.3) mg/dL Total Bilirubin 1.0 (0.2-1.0) mg/dL AST 16 (10-42) IU/L ALT 14 (10-60) IU/L Alkaline Phosphatase 135 H (42-121) IU/L Total Creatine Kinase 30 (22-269) IU/L CK-MB (CK-2) 2.4 (0.6-6.3) ng/mL Troponin I 0.05 (<0.49) ng/mL Total Protein 5.6 L (6.7-8.2) g/dL Albumin 1.4 L (3.2-5.5) g/dL Globulin 4.2 (2.1-4.2) g/dL Albumin/Globulin Ratio 0.3 L (1.0-2.2) Lipase 43 (22-51) U/L Ethyl Alcohol < 5.0 mg/dL Blood Type Blood Type Recheck Antibody Screen Crossmatch IS Only 04/17/18 04/17/18 Range/Units 19:10 19:10 WBC 12.8 H (4.8-10.8) x10^3/uL RBC 2.64 L (4.20-5.40) 10^6/uL Hgb 7.0 L* (12.0-16.0) g/dL Hct 23.3 L (37.0-47.0) % MCV 88.4 (81.0-99.0) fL MCH 26.5 L (27.0-31.0) pg MCHC 30.0 L (32.0-36.0) g/dL RDW 31.4 H (12.0-15.0) % Plt Count 77 L (130-450) 10^3/uL MPV 8.1 (7.9-10.8) fL Neut # (Auto) 11.7 H (1.5-6.6) 10^3/uL Lymph # (Auto) 0.2 L (1.5-3.5) 10^3/uL Larimer # (Auto) 0.7 (0.0-1.0) 10^3/uL Eos # (Auto) 0.0 (0.0-0.7) 10^3/uL Baso # (Auto) 0.1 (0.0-0.1) 10^3/uL Absolute Nucleated RBC 0.11 x10^3/uL Nucleated RBC % 0.8 /100WBC Manual Slide Review Indicated WBC Morphology NORMAL APPEARANCE (NORMAL) Platelet Estimate DECREASED (<130,000) (NORMAL) Platelet Morphology NORMAL APPEARANCE (NORMAL) RBC Morph Micro Appear 2+ POLYCHROMASIA (NORMAL) PT 22.5 H (9.9-12.6) secs INR 2.0 H (0.8-1.2) VBG pH (7.31-7.41) VBG pCO2 (41-51) mmHg VBG pO2 (25-47) mmHg VBG HCO3 (23-28) mmol/L VBG Total CO2 (24-29) mmol/L VBG O2 Saturation (60-80) % VBG Base Excess (-2 - +2) mmol/L Sodium (135-145) mmol/L Potassium (3.5-5.0) mmol/L Chloride (101-111) mmol/L Carbon Dioxide (21-32) mmol/L Anion Gap (6-13) BUN (6-20) mg/dL Creatinine (0.4-1.0) mg/dL Estimated GFR (MDRD) (>89) Glucose (70-100) mg/dL Lactic Acid (0.5-2.2) mmol/L Calcium (8.5-10.3) mg/dL Total Bilirubin (0.2-1.0) mg/dL AST (10-42) IU/L ALT (10-60) IU/L Alkaline Phosphatase (42-121) IU/L Total Creatine Kinase (22-269) IU/L CK-MB (CK-2) (0.6-6.3) ng/mL Troponin I (<0.49) ng/mL Total Protein (6.7-8.2) g/dL Albumin (3.2-5.5) g/dL Globulin (2.1-4.2) g/dL Albumin/Globulin Ratio (1.0-2.2) Lipase (22-51) U/L Ethyl Alcohol mg/dL Blood Type Blood Type Recheck Antibody Screen Crossmatch IS Only ABX Reporting Has patient been on IV antibiotics over the past 48 hours?: No Assessment/Plan - Problem List (1) Acute respiratory failure with hypoxia Impression: (1) Acute respiratory failure with hypoxia Comfort care measures with O2, pt already had hospice plan in out-pt, wait for family, per pt request,to transfer (2) Failure to thrive Conclusion/Plan: Social work consult for hospice, comfort measure, continue diet order as pt prefer (3) Anemia Conclusion/Plan: Comfort care, continue support pt and her family (4) Metastatic cancer will refer to hospice after discuss with her family per pt request (5) Decubitus ulcer of buttock, stage 4 Conclusion/Plan: Wound consult, follow up suggestions Social work consult for (6) Severe protein-calorie malnutrition comfort measure, continue support (7) Thrombocytopenia no bleeding, comfort measure (8) comfortable care pt wish comfortable care only
[2018-04-18 19:04] VITALS: BP 98/72
[2018-04-18] MEDS: DEXTROSE 5%-0.9% NACL 1,000 ML IV SCH (23:11)
[2018-04-19] MEDS: MORPHINE SOL 10 MG/0.5 ML SYRINGE SL PRN ×3 (03:01→09:26)
[2018-04-19] MEDS: LORazepam 0.5 MG TABLET PO PRN (03:09)
--- NOTE | 2018-04-19 15:35 | DISCHARGE SUMMARY ---
Discharge Summary Discharge Date: 04/19/18 Discharging Provider: KENDALL Condition at Discharge: Serious Discharge Disposition: 20 Discharge Facility Name: - DIAGNOSES Admission Diagnoses: (1) Acute respiratory failure with hypoxia (2) Failure to thrive (3) Anemia (4) Metastatic cancer (5) Decubitus ulcer of buttock, stage 4 Discharge Diagnoses with Status of Each Condition: 1) Acute respiratory failure with hypoxia continue difficult breath. comfortable measurement only. DNR, imminent , natural at 0950 04/19/18 (2) Failure to thrive deteriorate for nutrition. natural at 0950 04/19/18 (3) Anemia natural at 09 04/19/18 (4) Metastatic cancer natural at 09 04/19/18 (5) Decubitus ulcer of buttock, stage 4 wound consult with pt and follow up. natural at 0950 04/19/18 (6) imminent natural at 09 04/19/18. Called pt's son, but nobody picked up phone, ca lled daughter in law Yonatan Maldonado and notified the event, pt's . All Yonatan's question were answered. - HPI History of Present Illness: refer from Dr. Coto's HPI on 04/17/18 for pt as the following: Patient is a 52-year-old female with a very unfortunate past medical history significant for metastatic cancer of unknown primary diagnosed in January 2018 with metastasis to her spine and brain status post 10 rounds of radiation to her spine and 15 rounds of radiation to her brain who presented to the emergency department with a decreased level of consciousness. According to the patient she has had a severe decline over the last 2 months and specifically over the last few weeks. She states that she was first diagnosed with metastatic cancer when she presented with a lump in her side and underwent MRI and CT scans which showed that she had metastatic cancer in her spine and her brain. She states that she underwent radiation therapy to her brain and her spine starting in February in [place]. The patient states that since finishing her radiation therapy she has had a continued decline in over the last several weeks has been primarily bedbound. She states that she lives by herself and a friend does help out with providing her food but otherwise she has a little support or assistance. She does have 2 children one daughter who lives in [place], [place] and one son who lives in [place]. She states that she has had a very poor appetite and been eating very little. She states that she has pain on and off in her spine. She states that she has become so weak that she can barely sit up in her bed. She has been interested in hospice but has yet to enroll. At this point she states that she just wants to be comfortable. The patient was brought into the emergency department because of decreased level of consciousness today as she was very minimally responsive at home. The patient does state that she is having a hard time catching her breath but denies any chest pain. She denies any fevers or chills. She does state that she feels very cold. She denies any abdominal pain, nausea, vomiting, or diarrhea. She denies any urinary urgency, frequency or dysuria. She denies any neck stiffness or focal neurologic deficits. Patient denies any headache, blurred vision, runny nose, sore throat, nasal congestion, difficulty swallowing, orthopnea, PND, increased lower extremity swelling, constipation, joint swelling, joint pain, muscle aches, skin rash, night sweats, polyuria, polydipsia. On presentation to the emergency department the patient was afebrile, tachycardic with heart rate of 113, blood pressure was soft at 108/73 and patient was very tachypneic initially saturating at 78% on room air and placed on a nonrebreather. The patient initially underwent lab work which showed a mild leukocytosis of 12.8, anemia with a hemoglobin of 7.0, platelet count of 77, elevated INR of 2.0 and mildly elevated alk phos of 135. The patient otherwise had no electrolyte abnormalities. On arrival to the emergency department the patient was very minimally responsive and unable to give history. Eventually the patient's family arrived in the emergency department and they told the emergency room physician that the patient does not want anything invasive and therefore imaging studies were canceled by the emergency room daryn lee. The family stated that the patient just wants to be kept comfortable and would want to be set up for hospice at home. After speaking to the patient once she arrived in the hospital the patient was more awake and she did agree to be comfort care but was interested in getting IV fluids and a blood transfusion to help with hydration and strength. Patient was placed in observation for com fort measures and supportive care. - HOSPITAL COURSE Hospital Course: pt was admitted for respiratory failure. Pt was admitted in ICU. Per pt and her family request, comfortable measurement only for pt. while pt is waiting for transfer to hospice care, pt at 0950 on 04/19/2018. - ALLERGIES Allergies/Adverse Reactions: Allergies Allergy/AdvReac Type Severity Reaction Status Date / Time No Known Drug Allergies Allergy Verified 03/27/17 15:47 - MEDICATIONS Home Medications: Ambulatory Orders Medication Instructions Recorded Confirmed HYDROcod/ACETAM 5/325 [[place] 5/325] 1 - 2 ea PO Q6H PRN #15 tablet 03/27/17 Tamsulosin [Flomax] 0.4 mg PO DAILY #7 capsule 03/27/17 - PHYSICAL EXAM AT DISCHARGE Physical Exam Other/Comments: nurse report pt at 0950. I saw pt after that. pt appears . No breath ing sound and heart sound on auscultation, no corneal response, no response or reflexes to pain stimulation. - LABS Result Diagrams: 04/17/18 19:10 04/17/18 19:10 - FOLLOW UP Follow Up: at 0950, 04/19/18 - TIME SPENT Time Spent in Discharge (Minutes): 45
== END 2018-04-19 09:50 | disposition expired ==
LOC: ED 18:40 → ICU 19:39
PROVIDERS: ADMIT Internal Medicine; ATTEND Nurse Practitioner Gerontology
DX: J96.01 Acute respiratory failure with hypoxia (principal); R62.7 Adult failure to thrive; D64.9 Anemia, unspecified; C80.1 Malignant (primary) neoplasm, unspecified; C79.31 Secondary malignant neoplasm of brain; C79.51 Secondary malignant neoplasm of bone; L89.324 Pressure ulcer of left buttock, stage 4; E43 Unspecified severe protein-calorie malnutrition; E86.0 Dehydration; D69.6 Thrombocytopenia, unspecified; R40.2422 Glasgow coma scale score 9-12, at arrival to emergency department; Z51.5 Encounter for palliative care; Z68.1 Body mass index [BMI] 19.9 or less, adult; Z66 Do not resuscitate; Z92.3 Personal history of irradiation; Z74.01 Bed confinement status
CPT/HCPCS: 36415; 36430; 80053; 80320; 82550; 82553; 82803; 83605; 83690; 84484; 85025; 85610; 86850; 86900; 86901; 86920; 87040; 87150; 96360; 99284; 99285; A9270; G0378; P9016